=== PATIENT | female | born 1980 | race African-American/Black ===

== ENCOUNTER 2020-08-19 02:43 | Emergency (ER) | payer OTHER ==
[~2020-08-19] VITALS: Ht 149.9 cm; Wt 83.9 kg
[~2020-08-19 02:43] MED LIST: ADIPEX-P37.5 M1; MEDROLDOSEPACK PO; NOHOMEMEDICATIONS; NORCO 5-325 TA1 EACH PO; ULTRAM 50MG TAB50 MG PO; ZPAK PO
[2020-08-19 03:19] LABS: ABSOLUTE EOSINOPHILS 0.1 thou/uL (0.0-0.7); ABSOLUTE LYMPHOCYTES 1.9 thou/uL (0.8-5.3); ABSOLUTE MONOCYTES 0.6 thou/uL (0.0-1.2); ABSOLUTE NEUTROPHILS 3.5 thou/uL (1.6-8.1); BASOPHILS 0.7 %; EOSINOPHILS 2.3 %; HEMATOCRIT 39.6 % (37.0-47.0); HEMOGLOBIN 12.8 gm/dL (12.0-15.0); LYMPHOCYTES 31.1 %; MCH 27.9 pg (26.0-34.0); MCHC 32.4 g/dL (28.0-37.0); MCV 86.2 fL (80.0-100.0); MONOCYTES 10.1 %; MPV 8.3 fl. (7.2-11.1); NUCLEATED RBCS 0 /100WBC; PLATELET COUNT* 301 thou/uL (150-400); POLYS 55.8 %; RDW-CV 14.8 % (10.5-14.5); WBC 6.2 thou/uL (4.0-11.0)
[2020-08-19 03:21] LABS: URINE BILIRUBIN NEGATIVE (Negative); URINE BLOOD TRACE (Negative); URINE CLARITY CLEAR; URINE COLOR YELLOW; URINE GLUCOSE-RANDOM NEGATIVE (Negative); URINE KETONES NEGATIVE (Negative); URINE LEUKOCYTES-REFLEX NEGATIVE (Negative); URINE NITRITE-REFLEX NEGATIVE (Negative); URINE PROTEIN NEGATIVE (Negative); URINE SPECIFIC GRAVITY <= 1.005 (1.005-1.030); URINE UROBILINOGEN 0.2 E.U./dl (0.2-1.0)
[2020-08-19 03:27] LABS: ANION GAP 9 mmol/L (7-16); BUN 18 mg/dL (7-18); CALCIUM 8.8 mg/dL (8.5-10.1); CHLORIDE 101 mmol/L (98-107); CO2 27 mmol/L (21-32); GLUCOSE 100 mg/dL (70-99); POTASSIUM 3.4 mmol/L (3.5-5.1); SODIUM 137 mmol/L (136-145)
[2020-08-19 03:31] LABS: ALKALINE PHOSPHATASE 88 U/L (46-116); SGOT 19 U/L (15-37); SGPT 25 U/L (30-65); TOTAL BILIRUBIN < 0.1 mg/dL (<0.1-1.0); TOTAL PROTEIN 8.3 g/dL (6.4-8.2)
[2020-08-19] MEDS ORDERED: AMLODIPINE BESY10 MG PO (04:18)
[2020-08-19 04:19] VITALS: BP 129/83
--- NOTE | 2020-08-19 10:57 | EKG ---
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: : 1980 Requested By: Allison Weaver Order Number: [id number] MD: Wade Hartley Measurements Intervals [place] Rate: 92 P: 40 FL: 157 QRS: 80 QRSD: 90 T: -4 QT: 364 QTc: 451 Interpretive Statements Sinus rhythm Borderline T abnormalities, diffuse leads Compared to ECG 12/23/2011 15:35:44 no change Electronically Signed On 08-19-2020 10:57:43 ARMATURE BALANCER by Wade Hartley [email or web address] <ELECTRONICALLY SIGNED> By: Wade Hartley MD, [facility] 08/19/20 1057 0255 0255 Wade Hartley MD, [facility] /EPI
== END 2020-08-19 04:19 | disposition home or self-care (01) ==
LOC: M.ERS 02:43
PROVIDERS: Emergency Medicine
DX: I16.0 Hypertensive urgency (principal); I10 Essential (primary) hypertension; Z88.1 Allergy status to other antibiotic agents; Z88.2 Allergy status to sulfonamides

== ENCOUNTER 2020-08-23 17:50 | Emergency (ER) | payer OTHER ==
[~2020-08-23] VITALS: Ht 149.9 cm; Wt 83.5 kg
[~2020-08-23 17:50] MED LIST changes: +AMLODIPINE BESY10 MG PO
[2020-08-23 18:05] VITALS: BP 144/82
== END 2020-08-23 18:06 | disposition home or self-care (01) ==
LOC: M.ERS 17:50
DX: I10 Essential (primary) hypertension (principal); Z88.1 Allergy status to other antibiotic agents; Z88.2 Allergy status to sulfonamides; Z98.890 Other specified postprocedural states

== ENCOUNTER 2020-09-10 20:19 | Observation (INO) | payer OTHER ==
[~2020-09-10] VITALS: Ht 149.9 cm; Wt 86.6 kg
--- NOTE | ~2020-09-10 | CON ---
[address] [address] CONSULTATION Name: EPSTEINPRITI Room: [address] MTetoR.#: [id number] Admission: 09/10/20 Attend Phys: Cisco Brown MD Discharge: Date of : 80 Report #: [id number] THIS REPORT FOR: cc: Physician not on staff Physician not on staff ~ Ludin Valencia MD DATE OF SERVICE: 09/11/2020 HISTORY OF PRESENT ILLNESS: This is a 39-year-old female patient who was evaluated by me for a pretty nonstructural symptom. She indicates that she is having some unusual symptoms on the left side of the face. She said it is not really numbness, but it is tightness. She indicates that this started some time ago when she was started on amlodipine for her hypertension. This became better when amlodipine was discontinued. Subsequently, she was started on hydrochlorothiazide. She said the symptoms started again. She also appeared to feel dizzy when she got up. She has no tonic-clonic activity. As an evaluation, she had a CT angiogram of the head, which was unremarkable. She had a CT scan of the chest, which was also unremarkable. She denies that she has a history of anxiety. She does have high blood pressure and looks like she takes medication intermittently. Her blood pressure was high when she came in, but it is running about 120 systolic now and presently she is not on any antihypertensive. I carried out 14-point review of system in this patient and she said that 14-point review of systems is basically unremarkable. She does not work now because she got laid off. PAST MEDICAL HISTORY: Positive for similar sensation when the patient was started on amlodipine. FAMILY HISTORY: Unremarkable. SOCIAL HISTORY: She does not abuse alcohol or use tobacco. PHYSICAL EXAMINATION: The patient's examination indicate that she is alert, responsive, able to follow simple and complex command. Her speech looks intact. Cranial nerve examination, on objective evaluation is unremarkable. She has symmetrical strength, sensation, reflexes and tone in all 4 extremities. There is no cerebellar sign. I could not look at the patient's fundus. She is moderately built individual. Her blood pressure is 126/71, respiration is 20, pulse is 79, temperature is 98. Pulses are palpable. Cardiac is unremarkable. She has no respiratory difficulty. LABORATORY DATA: Her white count is 6.6. Potassium is trace low at 3.2. It was 3.4 [place] [address] CONSULTATION Name: PRITI EPSTEIN Room: [address] M.R.#: [id number] Admission: 09/10/20 Attend Phys: Cisco Brown MD Discharge: Date of : 80 Report #: [id number] IMPRESSION: Clinically, it is difficult to find an organic etiology, which can explain the patient's symptoms. Although multiple etiologies can cause similar symptom, but her symptoms are pretty nonspecific. I considered the possibility of hemifacial spasms, but objectively there is no confirmation for that. MS sometime can present like that, but she does not have any prior history of MS. Unerupted herpes and unmanifested Garcia's palsy can present like that in prodromal phase, but that they do not present like this because symptoms are going on for a few weeks and that has been associated with medication intake whether that was amlodipine or whether that was hydrochlorothiazide. She denies any history of anxiety and depression. RECOMMENDATIONS: 1. I will suggest an MRI of the brain to rule out an outside chance for MS. 2. I do not think her blood pressure was high for long enough to cause this kind of symptoms until the MRI shows some overriding finding. We will get a few other workup, which I ordered, but I am not sure we will find any cause. Thank you very much for this referral. Please call me if there is any question. By: [id number] [id number] Valencia MD /scott
[2020-09-10 20:28] VITALS: BP 170/98
[2020-09-10] MEDS ORDERED: HYDROCHLOROTHIA25 M1 PO (20:32)
[2020-09-10 20:51] LABS: ABSOLUTE BASOPHILS 0.1 thou/uL (0.0-0.2); ABSOLUTE EOSINOPHILS 0.1 thou/uL (0.0-0.7); ABSOLUTE LYMPHOCYTES 2.4 thou/uL (0.8-5.3); ABSOLUTE MONOCYTES 0.6 thou/uL (0.0-1.2); ABSOLUTE NEUTROPHILS 3.5 thou/uL (1.6-8.1); BASOPHILS 0.8 %; EOSINOPHILS 1.2 %; HEMOGLOBIN 13.1 gm/dL (12.0-15.0); LYMPHOCYTES 36.8 %; MCH 27.9 pg (26.0-34.0); MCHC 32.7 g/dL (28.0-37.0); MCV 85.3 fL (80.0-100.0); MONOCYTES 8.4 %; MPV 8.1 fl. (7.2-11.1); NUCLEATED RBCS 0 /100WBC; PLATELET COUNT* 302 thou/uL (150-400); POLYS 52.8 %; RBC 4.69 mil/uL (4.20-5.00); RDW-CV 14.1 % (10.5-14.5); WBC 6.6 thou/uL (4.0-11.0)
[2020-09-10 21:01] LABS: CALCIUM 8.8 mg/dL (8.5-10.1); CREATININE 1.1 mg/dL (0.6-1.3); POTASSIUM 3.2 mmol/L (3.5-5.1)
[2020-09-10 21:05] LABS: APTT 25.2 Seconds (25.0-31.3); INR 0.9; PROTIME 10.1 Seconds (9.20-11.50)
[2020-09-10 21:08] LABS: ALBUMIN 4.2 g/dL (3.4-5.0); TOTAL BILIRUBIN 0.2 mg/dL (<0.1-1.0); TOTAL PROTEIN 8.3 g/dL (6.4-8.2)
[2020-09-10 22:55] VITALS: BP 123/81
[2020-09-10] MEDS ORDERED: HYDROCHLOROTH12.5 M2 PO (23:12)
[2020-09-10 23:30] VITALS: BP 132/84
[2020-09-11 04:18] VITALS: BP 123/78
[2020-09-11 08:06] VITALS: BP 126/71
[2020-09-11] MEDS ORDERED: LISINOPRIL20 MG PO (11:32)
[2020-09-11 13:41] VITALS: BP 149/85
--- NOTE | 2020-09-11 13:43 | EKG ---
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 : 1980 Requested By: Farzana Viera Order Number: [id number] MD: Paco Boogie Measurements Intervals [place] Rate: 107 P: 58 RI: 181 QRS: 53 QRSD: 92 T: -10 QT: 363 QTc: 485 Interpretive Statements Sinus tachycardia Probable left atrial enlargement Borderline T abnormalities, diffuse leads Borderline prolonged QT interval Compared to ECG 08/19/2020 02:55:02 Sinus rate has increased T-wave abnormality still present Electronically Signed On 09-11-2020 13:43:15 TOLL TICKET CLERK by Paco Boogie [email or web address] <ELECTRONICALLY SIGNED> By: Paco Boogie MD, FAC 09/11/20 1343 42 42 Paco Boogie MD, [facility] /EPI
[2020-09-11 16:19] VITALS: BP 158/84
[2020-09-11 20:00] VITALS: BP 120/66
[2020-09-11 21:13] LABS: AMP/METHAMP Negative (Negative); BARBITURATES Negative (Negative); BENZODIAZEPINES Negative (Negative); COCAINE Negative (Negative); METHADONE Negative (Negative); OPIATES Negative (Negative); PCP Negative (Negative); THC Negative (Negative)
[2020-09-11 23:45] VITALS: BP 152/90
[2020-09-12 03:54] VITALS: BP 149/96
[2020-09-12 08:52] VITALS: BP 141/86
--- NOTE | 2020-09-12 09:37 | EKG ---
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 : 1980 Requested By: Carlitos Boyer Order Number: [id number] MD: Chepe Rivers Measurements Intervals [place] Rate: 149 P: 64 IN: 113 QRS: 124 QRSD: 83 T: -35 QT: 284 QTc: 447 Interpretive Statements Sinus tachycardia Right axis deviation Possible anteroseptal infarct, old Abnormal T, consider ischemia, inferior leads Compared to ECG 09/10/2020 20:43:19 Right-axis deviation now present Possible myocardial infarct finding now present Possible ischemia now present T-wave abnormality still present Electronically Signed On 09-12-2020 9:37:10 DIRECTOR OF PROVIDER RELATIONS by Chepe Rivers [email or web address] <ELECTRONICALLY SIGNED> By: Chepe Rivers MD, [facility] 09/12/20936 5 5 Chepe Rivers MD, [facility] /EPI
[2020-09-12] MEDS ORDERED: HYDRALAZIN20 MG/1 ML PO (09:51)
[2020-09-12] MEDS ORDERED: XANAX 0.25 MG0.25 MG PO (09:51)
[2020-09-12 12:41] VITALS: BP 141/86
== END 2020-09-12 13:00 | disposition home or self-care (01) ==
LOC: M.ERS 20:19 → M.TBA-ER 22:15 → M.2W 22:15
PROVIDERS: Internal Medicine; Personal Emergency Response Attendant; ADMIT Internal Medicine; ATTEND Internal Medicine
DX: G51.8 Other disorders of facial nerve (principal); E87.6 Hypokalemia; R55 Syncope and collapse; Z20.822 Contact with and (suspected) exposure to COVID-19; I10 Essential (primary) hypertension; Z88.1 Allergy status to other antibiotic agents; Z88.2 Allergy status to sulfonamides

== ENCOUNTER 2020-09-27 21:25 | Emergency (ER) | payer OTHER, MEDICAID ==
[~2020-09-27] VITALS: Ht 149.9 cm; Wt 83.9 kg
[~2020-09-27 21:25] MED LIST changes: +HYDRALAZIN20 MG/1 ML PO; +HYDROCHLOROTH12.5 M2 PO; +HYDROCHLOROTHIA25 M1 PO; +LISINOPRIL20 MG PO; +XANAX 0.25 MG0.25 MG PO
[2020-09-27] MEDS ORDERED: NORVASC5 MG PO (21:37)
[2020-09-27 22:51] LABS: ABSOLUTE BASOPHILS 0.1 thou/uL (0.0-0.2); ABSOLUTE EOSINOPHILS 0.1 thou/uL (0.0-0.7); ABSOLUTE LYMPHOCYTES 1.7 thou/uL (0.8-5.3); ABSOLUTE MONOCYTES 0.4 thou/uL (0.0-1.2); BASOPHILS 0.8 %; EOSINOPHILS 0.8 %; HEMATOCRIT 39.7 % (37.0-47.0); HEMOGLOBIN 13.1 gm/dL (12.0-15.0); LYMPHOCYTES 27.8 %; MCH 28.2 pg (26.0-34.0); MCV 85.4 fL (80.0-100.0); MONOCYTES 6.3 %; NUCLEATED RBCS 0 /100WBC; PLATELET COUNT* 308 thou/uL (150-400); POLYS 64.3 %; RBC 4.65 mil/uL (4.20-5.00); RDW-CV 14.1 % (10.5-14.5); WBC 6.3 thou/uL (4.0-11.0)
[2020-09-27 23:01] LABS: CALCIUM 9.2 mg/dL (8.5-10.1); CREATININE 0.9 mg/dL (0.6-1.3); POTASSIUM 3.4 mmol/L (3.5-5.1)
[2020-09-27 23:04] LABS: APTT 25.3 Seconds (25.0-31.3); PROTIME 10.9 Seconds (9.20-11.50)
[2020-09-27 23:05] LABS: TOTAL BILIRUBIN 0.3 mg/dL (<0.1-1.0); TOTAL PROTEIN 8.6 g/dL (6.4-8.2)
[2020-09-28 00:27] LABS: URINE BILIRUBIN NEGATIVE (Negative); URINE BLOOD 3+ (Negative); URINE CLARITY CLEAR; URINE COLOR YELLOW; URINE GLUCOSE-RANDOM NEGATIVE (Negative); URINE KETONES 1+ (Negative); URINE LEUKOCYTES-REFLEX NEGATIVE (Negative); URINE NITRITE-REFLEX NEGATIVE (Negative); URINE PROTEIN NEGATIVE (Negative); URINE UROBILINOGEN 0.2 E.U./dl (0.2-1.0)
[2020-09-28] MEDS ORDERED: TORADOL 10 MG T10 MG PO (00:33)
[2020-09-28 00:37] LABS: BACTERIA-REFLEX >30 Many /HPF (None Seen); CASTS None Seen /LPF (None Seen); CRYSTALS None Seen /LPF (None Seen); MUCUS 0-3 Light strn/LPF (None Seen); SQUAMOUS >10 Many /LPF (0-3); TRANSITIONAL EPITHEL CELL 0-3 Few /LPF (None Seen); URINE WBC-REFLEX 6-15 Few /HPF (0-5)
[2020-09-28] MEDS ORDERED: MACROBID 100 M100 M1 PO (00:49)
[2020-09-28 01:04] VITALS: BP 143/87
--- NOTE | 2020-09-28 10:20 | EKG ---
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: : 1980 Requested By: Farzana Viera Order Number: [id number] MD: Chepe Rivers Measurements Intervals [place] Rate: 85 P: 57 HI: 166 QRS: 20 QRSD: 89 T: 6 QT: 374 QTc: 445 Interpretive Statements Sinus rhythm Borderline T wave abnormalities Baseline wander in lead(s) II,III,aVF Compared to ECG 09/12/2020 02:16:53 Sinus tachycardia no longer present Right-axis deviation no longer present Myocardial infarct finding no longer present Possible ischemia no longer present T-wave abnormality still present Electronically Signed On 09-28-2020 10:19:49 CDT by Chepe Rivers [email or web address] <ELECTRONICALLY SIGNED> By: Chepe Rivers MD, [facility] 09/28/20 1019 29 29 Chepe Rivers MD, [facility] /EPI
== END 2020-09-28 01:06 | disposition home or self-care (01) ==
LOC: M.ERS 21:25
PROVIDERS: Personal Emergency Response Attendant
DX: F41.9 Anxiety disorder, unspecified (principal); R07.89 Other chest pain; I10 Essential (primary) hypertension; Z88.1 Allergy status to other antibiotic agents; Z88.2 Allergy status to sulfonamides; Z88.8 Allergy status to other drugs, medicaments and biological substances; Z98.890 Other specified postprocedural states

== ENCOUNTER 2020-10-07 01:42 | Emergency (ER) | payer OTHER, MEDICAID ==
[~2020-10-07] VITALS: Ht 157.5 cm; Wt 72.6 kg
[~2020-10-07 01:42] MED LIST changes: +MACROBID 100 M100 M1 PO; +NORVASC5 MG PO; +TORADOL 10 MG T10 MG PO
[2020-10-07] MEDS ORDERED: NEURONTIN100 MG PO (01:54)
[2020-10-07 02:02] LABS: ABSOLUTE BASOPHILS 0.1 thou/uL (0.0-0.2); ABSOLUTE EOSINOPHILS 0.1 thou/uL (0.0-0.7); ABSOLUTE LYMPHOCYTES 3.1 thou/uL (0.8-5.3); ABSOLUTE MONOCYTES 0.6 thou/uL (0.0-1.2); ABSOLUTE NEUTROPHILS 4.6 thou/uL (1.6-8.1); BASOPHILS 1.1 %; EOSINOPHILS 0.7 %; HEMATOCRIT 38.9 % (37.0-47.0); HEMOGLOBIN 12.9 gm/dL (12.0-15.0); LYMPHOCYTES 36.8 %; MCH 28.4 pg (26.0-34.0); MCHC 33.2 g/dL (28.0-37.0); MCV 85.5 fL (80.0-100.0); MONOCYTES 7.4 %; MPV 8.3 fl. (7.2-11.1); NUCLEATED RBCS 0 /100WBC; PLATELET COUNT* 320 thou/uL (150-400); RBC 4.55 mil/uL (4.20-5.00); RDW-CV 13.6 % (10.5-14.5); WBC 8.5 thou/uL (4.0-11.0)
[2020-10-07 02:07] LABS: CALCIUM 9.1 mg/dL (8.5-10.1); POTASSIUM 3.1 mmol/L (3.5-5.1)
[2020-10-07 02:12] LABS: APTT 25.7 Seconds (25.0-31.3); PROTIME 10.6 Seconds (9.20-11.50)
[2020-10-07 02:17] LABS: ALBUMIN 4.2 g/dL (3.4-5.0); TOTAL BILIRUBIN 0.3 mg/dL (<0.1-1.0); TOTAL PROTEIN 8.6 g/dL (6.4-8.2)
[2020-10-07 02:54] LABS: URINE BILIRUBIN NEGATIVE (Negative); URINE BLOOD NEGATIVE (Negative); URINE CLARITY CLEAR; URINE COLOR STRAW; URINE GLUCOSE-RANDOM NEGATIVE (Negative); URINE KETONES 1+ (Negative); URINE LEUKOCYTES-REFLEX NEGATIVE (Negative); URINE NITRITE-REFLEX NEGATIVE (Negative); URINE PROTEIN NEGATIVE (Negative); URINE SPECIFIC GRAVITY 1.015 (1.005-1.030); URINE UROBILINOGEN 0.2 E.U./dl (0.2-1.0)
[2020-10-07 03:04] LABS: AMP/METHAMP Negative (Negative); BARBITURATES Negative (Negative); BENZODIAZEPINES Negative (Negative); COCAINE Negative (Negative); METHADONE Negative (Negative); OPIATES Negative (Negative); PCP Negative (Negative); THC Negative (Negative)
[2020-10-07] MEDS ORDERED: CHLORDIAZEPOXID25 M1 PO (03:30)
[2020-10-07 03:45] VITALS: BP 125/89
--- NOTE | 2020-10-08 10:23 | EKG ---
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: : 1980 Requested By: Farzana Viera Order Number: [id number] MD: Chepe Rivers Measurements Intervals [place] Rate: 124 P: 62 NC: 154 QRS: 71 QRSD: 87 T: -24 QT: 339 QTc: 487 Interpretive Statements Sinus tachycardia Nonspecific ST segment and T wave changes Borderline prolonged QT interval Compared to ECG 09/27/2020 21:30:22 Sinus rhythm no longer present T-wave abnormality still present Electronically Signed On 10-08-2020 10:23:10 CDT by Chepe Rivers [email or web address] <ELECTRONICALLY SIGNED> By: Chepe Rivers MD, FAC 10/08/20 1023 0146 0146 Chepe Rivers MD, [facility] /EPI
== END 2020-10-07 03:45 | disposition home or self-care (01) ==
LOC: M.ERS 01:42
PROVIDERS: Personal Emergency Response Attendant
DX: F41.9 Anxiety disorder, unspecified (principal); R00.0 Tachycardia, unspecified; I10 Essential (primary) hypertension; Z88.1 Allergy status to other antibiotic agents; Z88.2 Allergy status to sulfonamides; Z88.8 Allergy status to other drugs, medicaments and biological substances; Z79.899 Other long term (current) drug therapy

== ENCOUNTER 2020-10-17 18:04 | Emergency (ER) | payer OTHER, MEDICAID ==
[~2020-10-17] VITALS: Ht 149.9 cm; Wt 83.9 kg
[~2020-10-17 18:04] MED LIST changes: +CHLORDIAZEPOXID25 M1 PO; +NEURONTIN100 MG PO
[2020-10-17 19:22] LABS: ANION GAP 11 mmol/L (7-16); BUN 19 mg/dL (7-18); CALCIUM 9.3 mg/dL (8.5-10.1); CHLORIDE 101 mmol/L (98-107); CO2 26 mmol/L (21-32); GLUCOSE 105 mg/dL (70-99); POTASSIUM 3.8 mmol/L (3.5-5.1); SODIUM 138 mmol/L (136-145)
[2020-10-17 19:24] LABS: ABSOLUTE EOSINOPHILS 0.1 thou/uL (0.0-0.7); ABSOLUTE LYMPHOCYTES 1.4 thou/uL (0.8-5.3); ABSOLUTE MONOCYTES 0.5 thou/uL (0.0-1.2); ABSOLUTE NEUTROPHILS 4.7 thou/uL (1.6-8.1); APTT 27.1 Seconds (25.0-31.3); BASOPHILS 0.5 %; EOSINOPHILS 1.1 %; HEMATOCRIT 39.1 % (37.0-47.0); HEMOGLOBIN 12.7 gm/dL (12.0-15.0); LYMPHOCYTES 21.4 %; MCH 27.6 pg (26.0-34.0); MCHC 32.4 g/dL (28.0-37.0); MCV 85.4 fL (80.0-100.0); MONOCYTES 7.6 %; MPV 8.7 fl. (7.2-11.1); NUCLEATED RBCS 0 /100WBC; PLATELET COUNT* 294 thou/uL (150-400); POLYS 69.4 %; PROTIME 10.7 Seconds (9.20-11.50); RBC 4.58 mil/uL (4.20-5.00); RDW-CV 13.7 % (10.5-14.5); WBC 6.8 thou/uL (4.0-11.0)
[2020-10-17 19:36] LABS: ALKALINE PHOSPHATASE 70 U/L (46-116); CK-MB MASS < 0.5 ng/mL (<0.5-3.6); LIPASE 151 U/L (73-393); MAGNESIUM 2.3 mg/dL (1.8-2.4); NT-PRO BRAIN NAT PEPTIDE 15 pg/mL (<300); SGOT 17 U/L (15-37); SGPT 22 U/L (30-65); TOTAL BILIRUBIN 0.2 mg/dL (<0.1-1.0); TOTAL PROTEIN 8.5 g/dL (6.4-8.2)
[2020-10-17] MEDS ORDERED: NABUMETONE 750750 M1 PO (20:48)
[2020-10-17] MEDS ORDERED: FLEXERIL PO (20:48)
[2020-10-17 21:07] VITALS: BP 124/72
--- NOTE | 2020-10-18 11:11 | EKG ---
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: CLEO : 1980 Requested By: Chilango Fang Order Number: [id number] MD: Wade Hartley Measurements Intervals [place] Rate: 87 P: 49 MI: 163 QRS: 13 QRSD: 91 T: 0 QT: 364 QTc: 438 Interpretive Statements Sinus rhythm nonspecifc st segment changes Consider anterior infarct Compared to ECG 10/07/2020 01:46:26 Sinus tachycardia no longer present Electronically Signed On 10-18-2020 11:10:59 CDT by Wade Hartley [email or web address] <ELECTRONICALLY SIGNED> By: Wade Hartley MD, FAC 10/18/20 1110 181 10 Wade Hartley MD, [facility] /EPI
== END 2020-10-17 21:08 | disposition home or self-care (01) ==
LOC: M.ERS 18:04
PROVIDERS: Family Medicine
DX: R07.89 Other chest pain (principal); M79.605 Pain in left leg; I10 Essential (primary) hypertension; Z88.2 Allergy status to sulfonamides; Z88.1 Allergy status to other antibiotic agents; Z88.8 Allergy status to other drugs, medicaments and biological substances

== ENCOUNTER 2020-10-22 19:10 | Emergency (ER) | payer OTHER, MEDICAID ==
[~2020-10-22] VITALS: Ht 149.9 cm; Wt 83.9 kg
[~2020-10-22 19:10] MED LIST changes: +FLEXERIL PO; +NABUMETONE 750750 M1 PO
[2020-10-22 19:46] LABS: URINE BILIRUBIN NEGATIVE (Negative); URINE BLOOD NEGATIVE (Negative); URINE CLARITY CLEAR; URINE GLUCOSE-RANDOM NEGATIVE (Negative); URINE KETONES NEGATIVE (Negative); URINE LEUKOCYTES-REFLEX NEGATIVE (Negative); URINE NITRITE-REFLEX NEGATIVE (Negative); URINE PROTEIN NEGATIVE (Negative); URINE SPECIFIC GRAVITY <= 1.005 (1.005-1.030); URINE UROBILINOGEN 0.2 E.U./dl (0.2-1.0)
[2020-10-22 19:49] LABS: URINE COLOR PALE YELLOW
[2020-10-22 19:53] LABS: AMP/METHAMP Negative (Negative); BARBITURATES Negative (Negative); BENZODIAZEPINES Negative (Negative); COCAINE Negative (Negative); METHADONE Negative (Negative); OPIATES Negative (Negative); PCP Negative (Negative); THC Negative (Negative)
[2020-10-22 20:03] LABS: HEMATOCRIT 39.2 % (37.0-47.0); HEMOGLOBIN 12.8 gm/dL (12.0-15.0); MCH 27.9 pg (26.0-34.0); MCHC 32.7 g/dL (28.0-37.0); MCV 85.2 fL (80.0-100.0); MPV 8.4 fl. (7.2-11.1); RBC 4.6 mil/uL (4.20-5.00); RDW-CV 13.4 % (10.5-14.5); WBC 6.7 thou/uL (4.0-11.0)
[2020-10-22 20:21] LABS: CALCIUM 9.2 mg/dL (8.5-10.1); CREATININE 0.9 mg/dL (0.6-1.3); POTASSIUM 3.6 mmol/L (3.5-5.1)
[2020-10-22 20:26] LABS: ALBUMIN 4.2 g/dL (3.4-5.0); TOTAL BILIRUBIN 0.3 mg/dL (<0.1-1.0); TOTAL PROTEIN 8.9 g/dL (6.4-8.2)
[2020-10-22] MEDS ORDERED: XANAX 0.25 MG0.25 MG PO (22:18)
[2020-10-22] MEDS ORDERED: ZOLOFT 50 MG TA50 MG PO (22:18)
[2020-10-22] MEDS ORDERED: AMITRIPTYLINE H75 M2 PO (22:18)
[2020-10-22 22:27] VITALS: BP 140/84
--- NOTE | 2020-10-23 14:44 | EKG ---
[place] [address] ELECTROCARDIOGRAM REPORT Name: PRITI EPSTEIN [id number] Admission: 10/22/20 Attend Phys: Discharge: 10/22/20 Date of : [birth year] Date of Service: 10/22/201920 Report #: [id number] THIS REPORT FOR: //name// [facility] ED Test Date: 2020-10-22 Test Time: 19:21:37 Pat Name: PRITI EPSTEIN Department: Room: Gender: Header Setup Operator: OK : 1980 Requested By: Farzana Viera Order Number: [id number] MD: Paco Boogie Measurements Intervals [place] Rate: 93 P: 36 ME: 162 QRS: 32 QRSD: 90 T: 2 QT: 342 QTc: 426 Interpretive Statements Sinus rhythm Borderline T abnormalities, inferior leads Compared to ECG 10/17/2020 18:11:21 T-wave abnormality now present Myocardial infarct finding no longer present Electronically Signed On 10-23-2020 14:44:24 CDT by Paco Boogie [email or web address] <ELECTRONICALLY SIGNED> By: Paco Boogie MD, [facility] 10/23/20 1444 20 20 Paco Boogie MD, [facility] /EPI
== END 2020-10-22 22:40 | disposition home or self-care (01) ==
LOC: M.ERS 19:10
PROVIDERS: Personal Emergency Response Attendant
DX: F41.9 Anxiety disorder, unspecified (principal); I10 Essential (primary) hypertension; Z88.1 Allergy status to other antibiotic agents; Z88.2 Allergy status to sulfonamides; Z88.8 Allergy status to other drugs, medicaments and biological substances; Z79.899 Other long term (current) drug therapy

== ENCOUNTER 2020-10-23 15:02 | Emergency (ER) | payer OTHER, MEDICAID ==
[~2020-10-23] VITALS: Ht 149.9 cm; Wt 83.9 kg
[~2020-10-23 15:02] MED LIST changes: +AMITRIPTYLINE H75 M2 PO; +ZOLOFT 50 MG TA50 MG PO
[2020-10-23 15:43] LABS: ABSOLUTE LYMPHOCYTES 1.2 thou/uL (0.8-5.3); ABSOLUTE MONOCYTES 0.4 thou/uL (0.0-1.2); ABSOLUTE NEUTROPHILS 3.6 thou/uL (1.6-8.1); BASOPHILS 0.6 %; EOSINOPHILS 0.8 %; HEMATOCRIT 39.7 % (37.0-47.0); HEMOGLOBIN 12.9 gm/dL (12.0-15.0); LYMPHOCYTES 23.1 %; MCH 27.5 pg (26.0-34.0); MCHC 32.4 g/dL (28.0-37.0); MCV 84.7 fL (80.0-100.0); MONOCYTES 7.5 %; MPV 8.5 fl. (7.2-11.1); NUCLEATED RBCS 0 /100WBC; PLATELET COUNT* 298 thou/uL (150-400); RBC 4.69 mil/uL (4.20-5.00); RDW-CV 13.6 % (10.5-14.5); WBC 5.3 thou/uL (4.0-11.0)
[2020-10-23 15:51] LABS: CALCIUM 9.4 mg/dL (8.5-10.1); CREATININE 0.9 mg/dL (0.6-1.3); POTASSIUM 3.8 mmol/L (3.5-5.1)
[2020-10-23 15:55] LABS: ALBUMIN 4.1 g/dL (3.4-5.0); TOTAL BILIRUBIN 0.3 mg/dL (<0.1-1.0); TOTAL PROTEIN 8.7 g/dL (6.4-8.2)
[2020-10-23 17:30] VITALS: BP 132/86
--- NOTE | 2020-10-24 14:14 | EKG ---
[place] [address] ELECTROCARDIOGRAM REPORT Name: PRITI EPSTEIN Room: [facility]#: [id number] Admission: 10/23/20 Attend Phys: Discharge: 10/23/20 Date of : [birth year] Date of Service: 10/23/20 151 Report #: [id number] THIS REPORT FOR: //name// [facility] ED Test Date: 2020-10-23 Test Time: 15:11:14 Pat Name: PRITI EPSTEIN Department: Room: Gender: F Solutions Architect: [facility] : 1980 Requested By: Chaka Jones Order Number: [id number] MD: Chepe Rivers Measurements Intervals [place] Rate: 91 P: 51 OR: 157 QRS: 44 QRSD: 89 T: 0 QT: 343 QTc: 423 Interpretive Statements Sinus rhythm Borderline T wave abnormalities Compared to ECG 10/22/2020 19:21:37 No significant changes Electronically Signed On 10-24-2020 14:14:01 CDT by Chepe Rivers [email or web address] <ELECTRONICALLY SIGNED> By: Chepe Rivers MD, FAC 10/24/20 1414 1511 1511 Chepe Rivers MD, [facility] /EPI
== END 2020-10-23 17:33 | disposition home or self-care (01) ==
LOC: M.ERS 15:02
PROVIDERS: Emergency Medicine Emergency Medical Services
DX: I95.1 Orthostatic hypotension (principal); G25.71 Drug induced akathisia; I10 Essential (primary) hypertension; Z88.1 Allergy status to other antibiotic agents; Z88.2 Allergy status to sulfonamides; Z88.8 Allergy status to other drugs, medicaments and biological substances

== ENCOUNTER 2020-10-27 11:31 | Emergency (ER) | payer OTHER, MEDICAID ==
[~2020-10-27] VITALS: Ht 149.9 cm; Wt 80.7 kg
[2020-10-27 13:54] LABS: ABSOLUTE LYMPHOCYTES 1.2 thou/uL (0.8-5.3); ABSOLUTE MONOCYTES 0.3 thou/uL (0.0-1.2); ABSOLUTE NEUTROPHILS 2.7 thou/uL (1.6-8.1); EOSINOPHILS 0.6 %; HEMATOCRIT 37.9 % (37.0-47.0); HEMOGLOBIN 12.2 gm/dL (12.0-15.0); LYMPHOCYTES 28.4 %; MCH 27.9 pg (26.0-34.0); MCHC 32.2 g/dL (28.0-37.0); MCV 86.5 fL (80.0-100.0); MONOCYTES 7.4 %; MPV 8.2 fl. (7.2-11.1); NUCLEATED RBCS 0 /100WBC; PLATELET COUNT* 293 thou/uL (150-400); POLYS 62.6 %; RBC 4.39 mil/uL (4.20-5.00); WBC 4.3 thou/uL (4.0-11.0)
[2020-10-27 13:58] LABS: CALCIUM 9.5 mg/dL (8.5-10.1); CREATININE 0.9 mg/dL (0.6-1.3); POTASSIUM 4.1 mmol/L (3.5-5.1)
[2020-10-27 14:03] LABS: TOTAL BILIRUBIN 0.3 mg/dL (<0.1-1.0); TOTAL PROTEIN 8.4 g/dL (6.4-8.2)
[2020-10-27] MEDS ORDERED: VISTARIL 25 MG25 M1 PO (14:33)
[2020-10-27 14:55] VITALS: BP 116/81
[2020-10-29] MEDS ORDERED: LEXAPRO5 MG PO (20:42)
[2020-10-29] MEDS ORDERED: CLONAZEPAM 0.50.5 M1 PO (20:42)
--- NOTE | 2020-10-30 10:36 | EKG ---
[place] [address] ELECTROCARDIOGRAM REPORT Name: PRITI EPSTEIN Room: [facility]#: [id number] Admission: 10/27/20 Attend Phys: Discharge: 10/27/20 Date of : [birth year] Date of Service: 10/27/20 1140 Report #: [id number] THIS REPORT FOR: //name// [facility] ED Test Date: 2020-10-27 Test Time: 11:40:32 Pat Name: PRITI EPSTEIN Department: Room: Gender: F Operating Room Rn: ZEE : 1980 Requested By: Shana Banks Order Number: [id number] MD: Wade Hartley Measurements Intervals [place] Rate: 87 P: 47 [place]: 159 QRS: 47 QRSD: 89 T: 14 QT: 373 QTc: 449 Interpretive Statements Sinus rhythm Probable left atrial enlargement Abnormal R-wave progression, late transition Borderline T abnormalities, anterior leads Compared to ECG 10/23/2020 15:11:14 No significant changes Electronically Signed On 10-30-2020 10:36:14 CDT by Wade Hartley [email or web address] <ELECTRONICALLY SIGNED> By: Wade Hartley MD, [facility] 10/30/20 1036 1140 1140 Wade Hartley MD, [facility] /EPI
== END 2020-10-27 14:57 | disposition home or self-care (01) ==
LOC: M.ERS 11:31
PROVIDERS: Physician Assistant
DX: R07.89 Other chest pain (principal); I10 Essential (primary) hypertension; Z88.1 Allergy status to other antibiotic agents; Z88.2 Allergy status to sulfonamides; Z88.6 Allergy status to analgesic agent

== ENCOUNTER 2020-10-31 20:36 | Emergency (ER) | payer OTHER, MEDICAID ==
[~2020-10-31] VITALS: Ht 149.9 cm; Wt 80.7 kg
[~2020-10-31 20:36] MED LIST changes: +CLONAZEPAM 0.50.5 M1 PO; +LEXAPRO5 MG PO; +VISTARIL 25 MG25 M1 PO
[2020-10-31] MEDS ORDERED: GABAPENTIN100 MG PO (20:49)
[2020-10-31 22:06] VITALS: BP 148/94
== END 2020-10-31 22:07 | disposition home or self-care (01) ==
LOC: M.ERS 20:36
DX: F41.9 Anxiety disorder, unspecified (principal); I10 Essential (primary) hypertension; G62.9 Polyneuropathy, unspecified; Z88.8 Allergy status to other drugs, medicaments and biological substances; Z88.1 Allergy status to other antibiotic agents; Z88.2 Allergy status to sulfonamides; Z79.899 Other long term (current) drug therapy

== ENCOUNTER 2020-11-07 07:00 | Emergency (ER) | payer OTHER, MEDICAID ==
[~2020-11-07] VITALS: Ht 149.9 cm; Wt 81.0 kg
[~2020-11-07 07:00] MED LIST changes: +GABAPENTIN100 MG PO
[2020-11-07] MEDS ORDERED: SPIRONOLACTONE25 MG PO (07:12)
[2020-11-07 07:28] LABS: HEMATOCRIT 36.6 % (37.0-47.0); HEMOGLOBIN 11.9 gm/dL (12.0-15.0); MCH 27.6 pg (26.0-34.0); MCHC 32.5 g/dL (28.0-37.0); MCV 84.8 fL (80.0-100.0); MPV 8.1 fl. (7.2-11.1); RBC 4.32 mil/uL (4.20-5.00); RDW-CV 13.6 % (10.5-14.5); WBC 6.1 thou/uL (4.0-11.0)
[2020-11-07 07:36] LABS: POTASSIUM 3.6 mmol/L (3.5-5.1)
[2020-11-07 07:41] LABS: ALBUMIN 3.9 g/dL (3.4-5.0); TOTAL BILIRUBIN 0.4 mg/dL (<0.1-1.0); TOTAL PROTEIN 8.1 g/dL (6.4-8.2)
--- NOTE | 2020-11-07 08:35 | EKG ---
[place] [address] ELECTROCARDIOGRAM REPORT Name: PRITI EPSTEIN Room: [facility]#: [id number] Admission: 11/07/20 Attend Phys: Discharge: Date of : [birth year] Date of Service: 11/07/20703 Report #: [id number] THIS REPORT FOR: //name// [facility] ED Test Date: 2020-11-07 Test Time: 07:04:41 Pat Name: PRITI EPSTEIN Department: Room: Gender: F Correctional Corporal: [facility] : 1980 Requested By: Henok Self Order Number: [id number] MD: Chepe Rivers Measurements Intervals [place] Rate: 95 P: 45 FL: 162 QRS: 41 QRSD: 82 T: 2 QT: 358 QTc: 450 Interpretive Statements Sinus rhythm Borderline T wave abnormalities Compared to ECG 10/27/2020 11:40:32 No significant changes Electronically Signed On 11-07-2020 8:35:12 CDT by Chepe Rivers [email or web address] <ELECTRONICALLY SIGNED> By: Chepe Rivers MD, [facility] 11/07/20 0835 Chepe Rivers MD, [facility] /EPI
[2020-11-07 08:45] VITALS: BP 110/69
== END 2020-11-07 08:46 | disposition home or self-care (01) ==
LOC: M.ERS 07:00
PROVIDERS: Emergency Medicine
DX: R07.89 Other chest pain (principal); I10 Essential (primary) hypertension; F41.9 Anxiety disorder, unspecified; G62.9 Polyneuropathy, unspecified; Z88.8 Allergy status to other drugs, medicaments and biological substances; Z88.1 Allergy status to other antibiotic agents; Z88.2 Allergy status to sulfonamides; Z79.899 Other long term (current) drug therapy